=== PATIENT | male | born 1970 | race Caucasian/White ===

== ENCOUNTER → 2016-05-11 | Outpatient (CLI) | payer OTHER ==
--- NOTE | 2016-05-11 19:17 | PN ---
DATE OF SERVICE: 05/11/2016 A 46-year-old gentleman who has been followed in the [facility] for treatment of obstructive sleep apnea/hypopnea syndrome. Recently patient had a sleep study and I discussed results of sleep studies with patient in detail. Home sleep apnea test showed mild obstructive sleep apnea/hypopnea syndrome. After that, patient had CPAP titration recommended pressure of 11 cm of water. I checked patient's CPAP unit. Patient CPAP equipment is 30 out of 30 nights for more than 4 hours. Average usage is 8.9 hours. Apnea-hypopnea index reading from the machine for the one month is 2.9, which is totally normal range. Leak is 5 liters per minute. Patient feels significantly better while he is using his machine. He sleeps better and he does not feel any sleepiness during the day as he did before. Presently his [place] Sleepiness Scale is 0 today. MEDICATIONS: Lexapro, Toprol, doxazosin. PHYSICAL EXAMINATION: GENERAL: During physical exam, the patient in no distress. VITAL SIGNS: BP 150/88, HR 63, RR 13, weight 215.6. Temperature 98.1. Oxygen saturation at room air 96%. HEENT: PERRLA, EOMI. Evaluation of oropharynx showed low position of soft palate. NECK: Supple. No JVD. Thyroid is not palpable. LUNGS: Clear to percussion and to auscultation. Good air exchange. No wheezing or rhonchi. HEART: S1, S2 regular. No murmurs, gallops or rubs. ABDOMEN: Slightly obese. Soft and nontender. Bowel sounds are present. No organomegaly appreciated. EXTREMITIES: No clubbing or cyanosis. INSPECTOR ELEVATORS: Awake, alert, and oriented x3. Cranial nerves 2 to 7 intact. There is no fasciculation or atrophy noted. No focal deficits observed. IMPRESSION: 1. Obstructive sleep apnea-hypopnea syndrome on control with CPAP at the pressure 11 cm of water. Patient demonstrated 100% compliance with treatment benefiting from treatment. 2. No recent episodes of out of dream movements. Normal alertness during the day. [place] Sleepiness Scale is 0 after started on CPAP. 3. Hypertension. 4. Mild obesity. 5. Anxiety. 6. Benign prostatic hypertrophy. 7. Status post surgery for nasal septum deviation. PLAN: 1. Continue treatment with CPAP every night for the whole night. 2. Losing weight. 3. Sleep hygiene with regular time in bed for at least 8 hours. 4. No driving if feeling any sleepiness. 5. Precautions for possibility of mentioned above REM sleep behavioral disorder. 6. Follow-up visit in 10 months unless patient has any issues and needs to see me earlier or if he continues to have any episodes of significant movements during the sleep, he should come back for possible treatment with medications additionally. Thank you very much for referring this patient for consultation. Sincerely, Jv Isidro MD, PhD, FAASM. Diplomat of [place] [employer], Sleep Medicine Board by [place] [employer] [place] [employer] Cushion Maker of [facility] [place]
== END | disposition home or self-care (01) ==
LOC: SLEEP 14:47
PROVIDERS: ATTEND Internal Medicine
DX: G47.33 Obstructive sleep apnea (adult) (pediatric) (principal); I10 Essential (primary) hypertension; E66.9 Obesity, unspecified; F41.9 Anxiety disorder, unspecified; N40.0 Benign prostatic hyperplasia without lower urinary tract symptoms; Z98.890 Other specified postprocedural states; Z79.899 Other long term (current) drug therapy

== ENCOUNTER → 2017-02-15 | Outpatient (CLI) | payer OTHER ==
--- NOTE | 2017-02-15 16:37 | PN ---
PROGRESS NOTE DATE OF SERVICE: 02/15/2017 47-year-old gentleman who has been followed in the Sleep Center for treatment of obstructive sleep apnea-hypopnea syndrome. The patient continues successfully to use his CPAP equipment every night for the whole night without any significant problems. No snoring with the machine. [place] Sleepiness Scale today is only 2. I checked patient's CPAP unit. CPAP pressure is 11 cm of water. Usage is 100% of the time more than 4 hours. Average usage 8.9 hours. Leak is 0. Apnea-hypopnea index for the last night only 1.83, which is absolutely perfect. MEDICATIONS: Doxazosin, Lexapro and Toprol XL. PHYSICAL EXAM: Patient in no distress. VITAL SIGNS: BP 151/81, HR 72, RR 16, height 5 feet 9 inches, weight 217, 2 pounds more than during the previous visit. BMI 32.3, temperature 98.2, oxygen saturation room air 97%. oropharynx extremely low position of soft palate. Neck Supple, no JVD. Thyroid is not palpable. LUNGS Clear to percussion and to auscultation. Good air exchange. No wheezing or rhonchi. HEART S1, S2 regular. No murmurs, gallops, or rubs. ABDOMEN: Minimally obese. Soft and nontender. Bowel sounds are present. No organomegaly appreciated. EXTREMITIES No clubbing or cyanosis. UNHAIRING INSPECTOR Awake, alert, and oriented X3. Cranial nerves 2 to 7 intact. There is no fasciculation or atrophy. noted. No focal deficits observed. IMPRESSION: 1. Obstructive sleep apnea-hypopnea syndrome on control with CPAP. The patient demonstrated 100% compliance with treatment benefitting from treatment. 2. No episodes of out of dream movement. 3. Hypertension. 4. Anxiety. 5. Mild obesity. 6. History of benign prostatic hypertrophy. 7. Status post surgical treatment of nasal septum deviation. PLAN: 1. Continue treatment with CPAP every night. 2. Losing weight. 3. Sleep hygiene with regular time in bed for at least 8 hours. 4. No driving if feeling sleepiness. 5. Prescription for all necessary CPAP supplies. The patient will continue to use a nasal pillows AirFit P 10. Thank you very much for allowing me to participate in management of your patient. Sincerely, Jv Isidro MD, PhD, FAASM Diplomat of [place] [employer] [place] [employer] Manager [employer] of [facility] [place] MMALANNAL / BRANDONN: [id number] /
== END | disposition home or self-care (01) ==
LOC: SLEEP 14:47
PROVIDERS: ATTEND Internal Medicine
DX: G47.33 Obstructive sleep apnea (adult) (pediatric) (principal); I10 Essential (primary) hypertension; F32.9 Major depressive disorder, single episode, unspecified; E66.9 Obesity, unspecified; Z98.890 Other specified postprocedural states

== ENCOUNTER → 2018-12-27 | Outpatient (CLI) | payer BC ==
--- NOTE | 2018-12-27 08:23 | MR ---
EXAMINATION TYPE: MR knee RT wo con DATE OF EXAM: 12/27/2018 COMPARISON: None HISTORY: Right knee pain TECHNIQUE: Multiplanar, multisequence images of the knee is performed without IV contrast. FINDINGS: MEDIAL MENISCUS: Anterior and posterior horns are intact without tear. LATERAL MENISCUS: Anterior and posterior horns are intact without tear. CRUCIATE LIGAMENTS: The anterior and posterior cruciate ligaments are intact and unremarkable. COLLATERAL LIGAMENTS: The medial collateral ligament and lateral collateral ligament complex are inta ct and unremarkable. EXTENSOR MECHANISM: Visualized quadriceps and patellar tendons are intact. EFFUSION: No significant suprapatellar joint effusion. POPLITEAL CYST: No popliteal/shell cyst. TRICOMPARTMENT SPACES: Preserved CARTILAGE: There is some increased signal within the lateral femoral patellofemoral joint space carti lionel. This extends towards cortex. Contusion or fracture of the articular cartilage considered. Examp le image [id number] image 16. The patellar cartilage appears intact. Medial and lateral compartment articula r cartilage appears intact. Correlate with the mechanism of injury and location of pain. BONE MARROW SIGNAL: No focal abnormal marrow signal is appreciated. OTHER: No additional significant abnormality is appreciated. IMPRESSION: 1. Small contusion or fracture of the proximal femoral articular cartilage of the patellofemoral join t space may be present measuring approximately 0.8 cm in width. 2. Right knee otherwise appears within normal limits.
== END | disposition home or self-care (01) ==
LOC: RADMRIMAIN 07:37
PROVIDERS: ATTEND Orthopaedic Surgery
DX: M25.561 Pain in right knee (principal)

== ENCOUNTER → 2020-01-26 | Outpatient (CLI) | payer BC | END | disposition home or self-care (01) | LOC: LABWHC1 13:26 | PROVIDERS: ATTEND Family Medicine | DX: Z03.818 Encounter for observation for suspected exposure to other biological agents ruled out (principal) | CPT/HCPCS: U0003; C9803 ==

== ENCOUNTER → 2020-08-19 | Outpatient (CLI) | payer BC ==
--- NOTE | 2020-08-19 19:43 | CONS ---
CONSULTATION DATE OF SERVICE: 08/19/2020 This 50-year-old gentleman has been re-evaluated in [facility] Center for obstructive sleep apnea-hypopnea syndrome. HISTORY OF PRESENT ILLNESS/SLEEP-WAKE EVALUATION: The last time I saw this patient was more than 3 years ago. The patient continues to use his CPAP equipment every night and feels well with the machine. His sleep schedule is different, in relationship to his work schedule. When he works in the daytime, he goes to bed around 9 p.m., reads for about one hour, and then he sleeps until 6 in the morning. When he works on the afternoon shift, he sleeps from 1 a.m. until 10 a.m. When he works on the midnight shift, he goes to bed around 8 a.m. and sleeps until 10:30 a.m. Then in the middle of the day around 2 p.m. he takes Ambien and sleep from 3 p.m. until 10 p.m. The patient has shift superintendent work only once in 5 weeks. He is using AirFit P10 medium nasal pillows. [place] Sleepiness Scale today is 1. I checked his CPAP unit. CPAP pressure is 11 cm of water. Usage is 30/30 nights for more than 4 hours. Average usage is 9.1 hours per night. Leak is totally absent: Zero liters per minute. Apnea-hypopnea index is only 1.1, which is perfect. PAST MEDICAL HISTORY: Positive for hypertension, anxiety, BPH. PAST SURGICAL HISTORY: Nose surgery for nasal septum deviation. MEDICATIONS: 1. Toprol-XL 50 mg once a day. 2. Doxazosin 4 mg once a day. 3. Lexapro. 4. Ambien. SOCIAL HISTORY: Negative for smoking. Alcohol consumption: Occasional. FAMILY HISTORY: Positive for sleep apnea. REVIEW OF SYSTEMS: No fevers. No double vision. No recent chest pain. No shortness of breath. No abdominal pain. No bleeding episodes. No blood in the urine. No seizure episodes. Difficulties initiating sleep after the midnight shift work. PHYSICAL EXAMINATION: GENERAL: A pleasant gentleman without distress. VITAL SIGNS: BP 145/89, HR 65, RR 16, height 5 feet 10 inches, weight 217, body mass index 31.1. Oxygen saturation at room air 98%. HEENT: PERRLA, EOMI. Evaluation of oropharynx showed tongue protrudes midline. Extremely low position of soft palate. Mallampati IV. NECK: Supple. No JVD. Thyroid is not palpable. LUNGS: Clear to percussion and to auscultation. Good air exchange. No wheezing or rhonchi. HEART: S1, S2 regular. No murmurs, gallops or rubs. ABDOMEN: Soft and nontender. Bowel sounds are present. No organomegaly appreciated. EXTREMITIES: No clubbing or cyanosis. DIVERSIFIED CROPS I FARMWORKER: Awake, alert, and oriented X3. Cranial nerves 2 to 7 intact. There is no fasciculation or atrophy. noted. No focal deficits observed. IMPRESSION: 1. Obstructive sleep apnea-hypopnea syndrome. Patient demonstrated great compliance with treatment, benefitting from treatment. Normal respiration on CPAP. 2. No recent episodes of lfs-cl-gvout movements. 3. Hypertension. 4. Anxiety. 5. Mild obesity. 6. History of benign prostatic hypertrophy. 7. Status post surgical treatment for nasal septum deviation. PLAN: 1. I wrote prescription for all necessary CPAP supplies, including mask, tube, filters. 2. Patient will continue to use CPAP equipment every night for the whole night. 3. Losing weight. 4. Sleep hygiene with regular time in bed for at least 7-1/2 to 8 hours. 5. No driving if feeling any sleepiness. 6. Follow-up visit in 6 months. Thank you very much for allowing me to participate in the management of your patient. Sincerely, Jv Isidro MD, PhD, FAASM Diplomat of [place] [employer] [place] [employer] Ratings Analyst of [facility] [place] MMODL / IJN: [id number] /
== END ==
LOC: SLEEP 11:27
PROVIDERS: ATTEND Internal Medicine
DX: G47.33 Obstructive sleep apnea (adult) (pediatric) (principal); I10 Essential (primary) hypertension; F41.9 Anxiety disorder, unspecified; E66.9 Obesity, unspecified; Z87.430 Personal history of prostatic dysplasia; Z98.890 Other specified postprocedural states; Z68.31 Body mass index [BMI] 31.0-31.9, adult; Z79.899 Other long term (current) drug therapy; Z88.0 Allergy status to penicillin; Z88.6 Allergy status to analgesic agent
CPT/HCPCS: 99211

== ENCOUNTER → 2022-09-15 | Outpatient (CLI) | payer BC ==
--- NOTE | 2022-09-15 11:44 | XR ---
EXAM TYPE: LUMBAR SPINE X RAY SERIES COMPARISON: NONE HISTORY: Chronic lower back pain TECHNIQUE: 4 views are submitted. FINDINGS: Alignment is anatomic. The pedicles are intact. The transverse processes are intact. There is no s pondylolysis or spondylolisthesis. There is a moderate compression fracture L1 with 50% reduction gurdeep dy height. Small hypertrophic spurs level facet arthropathy L4-5 and L5 limits. Diffuse osteopenia. IMPRESSION: 1. Age indeterminate 50% compression fracture L1.
== END | disposition home or self-care (01) ==
LOC: RADXRMAIN 10:37
PROVIDERS: ATTEND Nurse Practitioner Family
DX: M48.56XA Collapsed vertebra, not elsewhere classified, lumbar region, initial encounter for fracture (principal); G89.29 Other chronic pain
CPT/HCPCS: 72100

== ENCOUNTER → 2023-11-08 | Outpatient (CLI) | payer BC | END | disposition home or self-care (01) | LOC: LABPRL 11:27 | PROVIDERS: ATTEND Family Medicine | DX: Z00.00 Encounter for general adult medical examination without abnormal findings | CPT/HCPCS: 80053; 80061; 83036; 85025 ==